=== PATIENT | female | born 2000 | race Hispanic/Latino ===

== ENCOUNTER 2023-07-22 16:49 | Emergency (ER) | payer BC, SELFPAY ==
--- NOTE | ~2023-07-22 | XR_ITS ---
EXAM: XR hand LT min 3V, XR hand RT min 3V DATE: 07/22/2023 18:05 HISTORY: dog bite injury BOTH HANDS 5TH DIGIT OF LEFT HAND . COMPARISON: None available. FINDINGS: Exam limited by overlapping fingers on the left and the lateral view. Normal mineralizatio n. No fracture or dislocation. No lytic or blastic lesion. Joint spaces are maintained. No erosion or periosteal change. Soft tissues within normal limits. IMPRESSION: No acute osseous finding in the right or left hands. Reviewed, dictated and finalized at location K. IMPRESSION: No acute osseous finding in the right or left hands.
[2023-07-22 16:51] VITALS: BP 146/100; RESP 16; TEMP 37.4; O2SAT 100
--- NOTE | 2023-07-22 17:49 | ED.GENADULT ---
HPI - General Adult General Chief complaint: Animal Bite Stated complaint: animal bite Time Seen by Provider: 07/22/23 17:36 Source: patient Mode of arrival: ambulatory Limitations: no limitations History of Present Illness HPI narrative: This is a 23-year-old female who presents to the ED with chief complaint of dog bite injury that occurred prior to arrival. Her dog and another dog got into a fight and she got in the middle of it. She reports subsequent injury to the left pinky finger and right medial knee. Laceration is reported to both areas. Reports pain and bruising to the right hand as well. Denies any numbness or weakness. Denies any further site of pain or injury. Related Data Allergies Allergy/AdvReac Type Severity Reaction Status Date / Time No Known Allergies Allergy Unverified 06/04/18 18:19 Review of Systems Review of Systems: All systems as dictated in HPI Exam Narrative: GENERAL: Well-appearing, well-nourished, and in no acute distress. HEAD: Normocephalic, atraumatic. EYES: PERRLA and EOMI. ENT: Nares clear, no rhinorrhea or epistaxis. Mucous membranes moist. Oropharynx without tonsillar hypertrophy exudate or other lesions. NECK: Supple. No adenopathy or masses. CHEST: No respiratory distress. Clear to auscultation. No wheezes rales or rhonchi HEART: Regular rate and rhythm. No murmur heard. Normal peripheral pulses. ABDOMEN: Soft, nontender, nondistended, normal active bowel sounds. MSK: Bruising and tenderness to the dorsum of the right hand over the first metacarpal. Range of motion. No edema. SKIN: 1.5 cm puncture wound to the right medial knee. No active bleeding. 2.5 cm gaping wound to the pinky on the palmar side. No active bleeding. Subcutaneous tissue exposed. NEURO: Alert and oriented x3. No focal deficits. PSYCH: Normal mood and affect. Course Vital Signs Vital signs: Vital Signs Temperature 99.4 F 07/22/23 16:51 Respiratory Rate 16 07/22/23 16:51 Blood Pressure 146/100 H 07/22/23 16:51 Pulse Oximetry 100 07/22/23 16:51 Oxygen Delivery Room Air 07/22/23 16:51 Temperature 99.4 F 07/22/23 16:51 Pulse Rate 92 07/22/23 19:21 Respiratory Rate 16 07/22/23 19:21 Blood Pressure 136/74 07/22/23 19:21 Pulse Oximetry 98 07/22/23 19:21 Oxygen Delivery Room Air 07/22/23 16:51 Procedures Laceration Laceration 1: Date: 07/22/23 Time: 19:01 Site: hand Side (If applicable): left Size (cm): 2.5 Description: linear Depth: simple, single layer and involves muscle layer Local Anesthetic: lidocaine 1% Amount of anesthesia used (mL): 2 Pre-repair: wound explored, irrigated extensively and deep structures intact ====== Skin Level ====== Skin layer closed with: nylon Size (cm): 5-0 Number of sutures: 3 (Loose approximation) Technique: simple, interrupted (Loose approximation) ====== Subcutaneous Layer ====== Subcutaneous layer closed with: vicryl Size: 4-0 Number of sutures: 4 Technique: simple, interrupted ====== Muscle Layer ====== ====== Tendon Layer ====== Dressing: Nonadherent pad, gauze dressing, finger splint Laceration 2: Date: 07/22/23 Time: 19:00 Site: lower extremity (Knee) Side (If applicable): right Size (cm): 1 Description: linear Depth: simple, single layer Local Anesthetic: none Pre-repair: wound explored and irrigated extensively ====== Skin Level ====== Skin layer closed with: steri strips (Loose approximation) Number of sutures: 2 ====== Subcutaneous Layer ====== ====== Muscle Layer ====== ====== Tendon Layer ====== Medical Decision Making [facility] Narrative Medical decision making narrative: This is a 23-year-old female who presents to the ED with chief complaint of dog bite inju
[2023-07-22] MEDS: TETANUS,DIPHTHERIA,AC PERTUSSIS ADULT (0.5 ML) BOOSTRIX IM (19:12)
[2023-07-22] MEDS: LIDOCAINE HCL 1% LOCAL INJ 10 ML VIAL INFILTRATE (19:13)
[2023-07-22 19:21] VITALS: BP 136/74; PULSE 92; RESP 16; O2SAT 98
== END 2023-07-22 19:22 | disposition home or self-care (01) ==
PROVIDERS: Emergency Provider Physician Assistant
DX: S61.257A Open bite of left little finger without damage to nail, initial encounter (principal); S81.031A Puncture wound without foreign body, right knee, initial encounter; Z23 Encounter for immunization; W54.0XXA Bitten by dog, initial encounter
CPT/HCPCS: 12041; 73130; 90471; 90715; 99283